=== PATIENT | female | born 1935 | race Caucasian/White ===

== ENCOUNTER 2016-03-06 05:02 | Emergency (ER) | payer MEDICARE, BC ==
[~2016-03-06 05:02] MED LIST: CARBIDOPA-LEVO1 EAC6 PO; DULCOLAX-DPS10 MG PR; DURAGESIC DPS25 MCG TP; DURAGESIC-1212 MCG TD; LIORESAL DPS10 MG PO; LOPRESSOR DPS12.5 MG PO; MAALOX DPS30 ML PO; MARYS PO; METOPROLOL TART25 MG PO; MIRALAX17 GM PO; NEURONTIN DPS300 MG PO; SENOKOT DPS8.6 MG PO; SINEMET 25-1001 EACH PO; SPORTS CREAM85 GM TP; SYNTHROID DP0.075 MG PO; TYLENOL DPS325 MG PO; ULTRAM DPS50 MG PO; VANCOCIN125 MG PO; VESICARE10 MG PO; VITAMIN D31000 UNIT PO; VITAMIN D35000 UNI1 PO; ZOFRAN4 MG PO; ZOFRAN8 MG PO; ZOLOFT DPS25 MG PO; ZOLOFT DPS50 MG PO
--- NOTE | 2016-03-15 00:14 | ER ---
ADMIT: 03/06/2016 RM/LOC: ER [facility] MR#: [id number] [id number] ELIZABETH [place] [address] Emergency Room Report SEX: F AGE: 80 : 1935 DATE: 03/06/2016 See T-sheet for complete H and P. ADDENDUM: A 80-year-old cerebral palsy patient, comes in with one complaint. Her single complaint is diarrhea. Her vital signs were stable. She has no other complaints and this has been going on for about a day. Her physical exam was unremarkable for anything acute and she is discharged home with the diagnosis of diarrhea, to follow up with her primary care physician's office and drink plenty of fluids. Gilberto Whitmore MD/ miguel angell JOB #: [id number] CC: Gilberto Whitmore MD, Attending Physician Ephraim Perez MD, Family Physician
== END 2016-03-06 06:00 | disposition home or self-care (01) ==
LOC: ER 05:02
DX: R19.7 Diarrhea, unspecified (principal); Z88.0 Allergy status to penicillin; Z88.8 Allergy status to other drugs, medicaments and biological substances; Z79.899 Other long term (current) drug therapy

== ENCOUNTER 2016-03-07 13:04 | Emergency (ER) | payer MEDICARE, BC ==
--- NOTE | 2016-03-17 16:02 | ER ---
ADMIT: 03/07/2016 RM/LOC: ER [facility] MR#: [id number] [address] ELIZABETH DAVIS [facility] [address] Emergency Room Report SEX: F AGE: 80 : 1935 DATE: 03/07/2016 A 80-year-old patient suffers from cerebral palsy. She has had diarrhea times past 3 or 4 days. She had a diagnosis of C. difficile approximately 2 or 3 years ago for which she follows Infectious Disease. See T-sheet for remainder of history and physical. CBC was significant for hemoglobin of 11.3. Electrolytes of potassium 3.2. UA 13 wbc's. Stool was positive for C. diff. She is given Flagyl in the Emergency Department as well as potassium supplement. She was given prescription for 14 days worth of Flagyl and instructed to follow up this coming week with Dr. Marcelino, her primary doctor. DIAGNOSIS: C. difficile associated diarrhea. Clarence Leon MD/ francisco JOB #: [id number] CC: Dash Celis MD, Attending Physician UNKNOWN, Family Physician
== END 2016-03-07 18:50 | disposition home or self-care (01) ==
LOC: ER 13:04
DX: A04.7 Enterocolitis due to Clostridium difficile (principal)